=== PATIENT | female | born 1930 | race Caucasian/White ===

== ENCOUNTER 2017-05-07 14:51 | Observation (INO) | payer MEDICARE ==
[~2017-05-07] VITALS: Ht 165.1 cm; Wt 63.5 kg
[~2017-05-07 14:51] MED LIST: ACET325T9 PO; ALEN70TA5 PO; ASPI-482 PO; ASPI325T8 PO; CALC1TAB PO; CHOL100013 PO; CYAN10005 PO; FERR300L PO; LISI10TA2 PO; METO25TA4 PO; OXYC1TAB7 PO
[2017-05-07 15:28] LABS: BASO # 0.1 x10^3/uL (0.0-0.2); BASO % 1 % (0-3); EOS % 1 % (0-3); HEMATOCRIT 36.5 % (36.0-47.0); HEMOGLOBIN 11.8 g/dL (12.0-15.5); LYMPH # 1.5 x10^3/uL (1.0-4.8); LYMPH % 15 % (24-48); MEAN CORPUSCULAR HEMOGLOBIN 30 pg (25-35); MEAN CORPUSCULAR HGB CONC 32 g/dL (31-37); MEAN CORPUSCULAR VOLUME 94 fL (79-100); MONO % 11 % (0-9); NEUT % 74 % (31-73); PLATELET COUNT 289 x10^3/uL (140-400); RED BLOOD COUNT 3.89 x10^6/uL (3.50-5.40); RED CELL DISTRIBUTION WIDTH 13.7 % (11.5-14.5); WHITE BLOOD COUNT 10.6 x10^3/uL (4.0-11.0)
--- NOTE | 2017-05-07 15:29 | PHYS DOC ---
Past Medical History Past Medical History: Hypertension, Other Additional Past Medical Histor: OSTEOPOROSIS Past Surgical History: Colectomy, Hip Replacement, Hysterectomy Additional Past Surgical Histo: R hip Alcohol Use: None Drug Use: None Adult General Chief Complaint Chief Complaint: WEAKNESS/GENERALIZED HPI HPI 87-year-old female presenting to the emergency department today for generalized weakness. She presents today after being at [facility]. She recently had a right hip replacement surgery about a month ago. She reports that today this morning she started feeling generally weak. She was able to do her daily exercises however was having a hard time sitting up. She denies unilateral weakness numbness or tingling. She denies facial drooping slurring of speech or vision changes. Otherwise she denies dysuria polyuria cough hematuria hematochezia melena. Review of systems is negative for fevers chills abdominal pain nausea or vomiting. All other review of systems is negative unless otherwise noted in history of present illness. ED course: 87-year-old female presenting to the emergency department today with generalized weakness. Triage vital signs show her to have hypertension. Otherwise she is afebrile saturating well on room air. Pertinent physical examination findings show the patient to have a normal neurologic exam with this symmetric facial smile and equal round reactive pupils. Otherwise the lungs are clear to auscultation without any other abnormalities. Labs were obtained. Along with chest x-ray and urine. EKG and head ct obtained as well. EKG shows sinus rhythm with regular rate. Normal intervals. leftward axis. ST segments are congruent. Not suggestive of ACS. Reviewed by myself. Chest x-ray reviewed by myself shows no obvious infiltrate or pneumothorax present. No obvious acute cardiopulmonary process present. Otherwise blood work unremarkable other than a mildly elevated proBNP. The patient is saturating well on room air and chest x-ray is without evidence of fluid overload/ pulmonary edema. Unfortunately the patient is extremely weak and will likely need to be admitted the hospital for probable occupational and physical therapy further monitoring workup and care. I discussed the case with Dr. Ervin or hospitalists who agreed to take over care. The patient was then admitted. Review of Systems Review of Systems SEE ABOVE. Allergies Allergies Allergies Coded Allergies Type Severity Reaction Last Updated Verified No Known Drug Allergies 05/07/17 No SEE ABOVE Physical Exam Physical Exam SEE ABOVE Constitutional: Well developed, well nourished, no acute distress, non-toxic appearance. [] HENT: Normocephalic, atraumatic, bilateral external ears normal, oropharynx moist, no oral exudates, nose normal. [] Eyes: PERRLA, EOMI, conjunctiva normal, no discharge. [] Neck: Normal range of motion, no tenderness, supple, no stridor. [] Cardiovascular:Heart rate regular rhythm, no murmur [] Lungs & Thorax: Bilateral breath sounds clear to auscultation [] Abdomen: Bowel sounds normal, soft, no tenderness, no masses, no pulsatile masses. [] Skin: Warm, dry, no erythema, no rash. [] Back: No tenderness, no CVA tenderness. [] Extremities: No tenderness, no cyanosis, no clubbing, ROM intact, no edema. [] Neurologic: Alert and oriented X 3, normal motor function, normal sensory function, no focal deficits noted. [] Psychologic: Affect normal, judgement normal, mood normal. [] Current Patient Data Vital Signs Vital Signs Date Time Temp Pulse Resp B/P (MAP) Pulse Ox O2 Delivery O2 Flow Rate FiO2 05/07/17 16:00 81 21 159/77 (104) 98 Room Air 05/07/17 14:56 98.5 98.5 Lab Values Laboratory Tests Test 05/07/17 15:10 05/07/17 15:20 05/07/17 15:45 White Blood Count 10.6 x10^3/uL (4.0-11.0) Red Blood Count 3.89 x10^6/uL (3.50-5.40) Hemoglobin 11.8 g/dL (12.0-15.5) L Hematocrit 36.5 % (36.0-47.0) Mean Corpuscular Volume 94 fL (79-100) Mean Corpuscular Hemoglobin 30 pg (25-35) Mean Corpuscular Hemoglobin Concent 32 g/dL (31-37) Red Cell Distribution Width 13.7 % (11.5-14.5) Platelet Count 289 x10^3/uL (140-400) Neutrophils (%) (Auto) 74 % (31-73) H Lymphocytes (%) (Auto) 15 % (24-48) L Monocytes (%) (Auto) 11 % (0-9) H Eosinophils (%) (Auto) 1 % (0-3) Basophils (%) (Auto) 1 % (0-3) Neutrophils # (Auto) 7.9 x10^3uL (1.8-7.7) H Lymphocytes # (Auto) 1.5 x10^3/uL (1.0-4.8) Monocytes # (Auto) 1.1 x10^3/uL (0.0-1.1) Eosinophils # (Auto) 0.1 x10^3/uL (0.0-0.7) Basophils # (Auto) 0.1 x10^3/uL (0.0-0.2) Sodium Level 139 mmol/L (136-145) Potassium Level 3.9 mmol/L (3.5-5.1) Chloride Level 103 mmol/L (98-107) Carbon Dioxide Level 29 mmol/L (21-32) Anion Gap 7 (6-14) Blood Urea Nitrogen 12 mg/dL (7-20) Creatinine 0.6 mg/dL (0.6-1.0) Estimated GFR (Cockcroft-Gault) 94.1 Glucose Level 135 mg/dL (70-99) H Calcium Level 9.0 mg/dL (8.5-10.1) Total Bilirubin 0.8 mg/dL (0.2-1.0) Direct Bilirubin 0.2 mg/dL (0.0-0.2) Aspartate Amino Transferase (AST) 20 U/L (15-37) Alanine Aminotransferase (ALT) 14 U/L (14-59) Alkaline Phosphatase 114 U/L (46-116) Troponin I Quantitative < 0.017 ng/mL (0.000-0.055) WR-Wnr-J-Type Natriuretic Peptide 1121 pg/mL (0-449) H Total Protein 6.1 g/dL (6.4-8.2) L Albumin 2.6 g/dL (3.4-5.0) L Lipase 145 U/L (73-393) Urine Collection Type U cath Urine Color Yellow Urine Clarity Clear Urine pH 6.0 Urine Specific [place] 1.020 Urine Protein Negative mg/dL (NEG-TRACE) Urine Glucose (UA) Negative mg/dL (NEG) Urine Ketones (Stick) Negative mg/dL (NEG) Urine Blood Negative (NEG) Urine Nitrite Negative (NEG) Urine Bilirubin Negative (NEG) Urine Urobilinogen Dipstick 0.2 mg/dL (0.2 mg/dL) Urine Leukocyte Esterase Moderate (NEG) Urine RBC 0 /HPF (0-2) Urine WBC >40 /HPF (0-4) Urine Squamous Epithelial Cells Few /LPF Urine Transitional Epithelial Cells Few /LPF Urine Bacteria 0 /HPF (0-FEW) Urine Mucus Marked /LPF Lactic Acid Level 1.0 mmol/L (0.4-2.0) Laboratory Tests 05/07/17 15:10 Laboratory Tests 05/07/17 15:10 EKG EKG [] Radiology/Procedures Radiology/Procedures [] Course & Med Decision Making Course & Med Decision Making Pertinent Labs and Imaging studies reviewed. (See chart for details) [] Dragon Disclaimer Dragon Disclaimer This electronic medical record was generated, in whole or in part, using a voice recognition dictation system. Departure Departure Impression: Primary Impression: Generalized weakness Additional Impression: Failure to thrive Disposition: ADMITTED INPATIENT Admitting Physician: Marilu Ervin Condition: STABLE Referrals: AVELINO MARCUS MD (PCP) Patient Instructions: Weakness, [id number] Problem Qualifiers DELON JOHNSON MD May 07, 2017 15:29
--- NOTE | 2017-05-07 15:31 | RAD ---
Portable chest, 05/07/2017: History: Weakness Comparison is made to a study from 04/03/2017. The heart size and pulmonary vascularity are normal. There is calcific plaquing and tortuosity of the thoracic aorta. Calcified granulomata are present in the right base. No acute infiltrate is seen. Blunting of the left lateral costophrenic angle is probably due to scarring. A small amount of pleural fluid cannot be excluded. No right-sided pleural fluid is evident. The bony structures are demineralized. IMPRESSION: No acute cardiopulmonary abnormality is detected.
[2017-05-07 15:39] LABS: BILIRUBIN,URINE NEGATIVE (NEG); GLUCOSE,URINE NEGATIVE (NEG); NITRITE,URINE NEGATIVE (NEG); PROTEIN,URINE NEGATIVE (NEG-TRACE); UROBILINOGEN,URINE 0.2 mg/dL (0.2 mg/dL)
[2017-05-07 15:43] LABS: CREATININE 0.6 mg/dL (0.6-1.0); GFR 94.1; POTASSIUM 3.9 mmol/L (3.5-5.1)
[2017-05-07 15:49] LABS: ALBUMIN 2.6 g/dL (3.4-5.0); DIRECT BILIRUBIN 0.2 mg/dL (0.0-0.2); TOTAL BILIRUBIN 0.8 mg/dL (0.2-1.0); TOTAL PROTEIN 6.1 g/dL (6.4-8.2)
[2017-05-07 15:59] LABS: BACTERIA,URINE 0 /HPF (0-FEW); RBC,URINE 0 /HPF (0-2); SQUAMOUS EPITHELIAL CELL,UR FEW /LPF; WBC,URINE >40 /HPF (0-4)
--- NOTE | 2017-05-07 16:26 | RAD ---
CT of the head without contrast, 05/07/2017: History: Weakness, fall Comparison is made to a study from 04/05/2017. There is moderate cerebral atrophy and mild cerebellar atrophy. The ventricles are mildly prominent on a compensatory basis. There is no shift of the midline structures. There is no evidence of acute intracranial hemorrhage or mass effect. There are mild unchanged bilateral deep white matter lucencies compatible with chronic ischemic change. IMPRESSION: 1. Chronic changes as described 2. No acute intracranial abnormality is detected. PQRS Compliance Statement: One or more of the following individualized dose reduction techniques were utilized for this examination: 1. Automated exposure control 2. Adjustment of the mA and/or kV according to patient size 3. Use of iterative reconstruction technique
[2017-05-07 19:00] VITALS: BP 130/58
[2017-05-07] MEDS ORDERED: MORPHINE SULFATE 2 MG/ML DISP.SYRIN. IV PRN (19:15)
[2017-05-07] MEDS ORDERED: ONDANSETRON PF 4 MG/2 ML VIAL. IV PRN (19:15)
--- NOTE | 2017-05-07 19:20 | EKG ---
[facility] [address] [place] [address] Test Date: 2017-05-07 Test Time: 15:21:08 Pat Name: GRAEME RODRÍGUEZ Department: Room: [facility] Gender: F [employer] Supervisor: : [id number] Requested By: DELON JOHNSON Order Number: [id number] Reading MD: Po Causey Measurements Intervals [place] Rate: 84 P: -16 WI: 196 QRS: -15 QRSD: 78 T: 18 QT: 348 QTc: 414 Interpretive Statements SINUS RHYTHM LEFTWARD AXIS QRS(T) CONTOUR ABNORMALITY CONSIDER ANTEROSEPTAL INFARCT POSSIBLY ABNORMAL ECG Electronically Signed On 05-09-2017 15:04:47 CDT by Po Causey
[2017-05-07] MEDS ORDERED: ASPI-482 PO (19:36)
[2017-05-07 23:00] VITALS: BP 134/51
--- NOTE | 2017-05-08 00:01 | HP ---
ADMIT DATE: 05/07/2017 CHIEF COMPLAINT: Weakness. HISTORY OF PRESENT ILLNESS: The patient is a pleasant elderly female, who presents to the ER with weakness. She basically just cannot walk. She has been worsening over several days. We suspect she has some underlying dementia. I have discussed the case with the ER physician. It is possible the patient has early failure to thrive. We are going to admit the patient and consult socially responsible investment adviser. PAST MEDICAL HISTORY: Osteoporosis, hypertension, hip replacement and hysterectomy. ALLERGIES: None. FAMILY HISTORY: Diabetes. SOCIAL HISTORY: She does not drink, smoke or take drugs. MEDICATIONS: Reviewed, please refer to the MRAD. REVIEW OF SYSTEMS: Unobtainable, the patient is too weak and confused. PHYSICAL EXAMINATION: VITAL SIGNS: Temperature afebrile, pulse 92, respirations 18, blood pressure 130/58. GENERAL: She is sleeping, does not really want to talk. HEART: Distant S1, S2. LUNGS: Clear. ABDOMEN: Soft, positive bowel sounds. EXTREMITIES: No edema. SKIN: No rashes. ENDOCRINE: No thyromegaly. LYMPHATICS: No cervical nodes. HEMATOPOIETIC: No bruising. LABORATORY DATA: White count 10, hemoglobin 12, platelets 289. Electrolytes are normal. BNP little high at 1121. ASSESSMENT AND PLAN: Weakness with probable early failure to thrive. The patient has been admitted. We will give her IV fluids. Consult socially responsible investment adviser try to resume her home meds. Suspect she might need [facility] care and/or halfway. YON GUAN DO DR: JUAN MANUEL/so JOB#: [id number] / [id number]
[2017-05-08 03:00] VITALS: BP 102/41
[2017-05-08 04:35] LABS: BASO # 0.1 x10^3/uL (0.0-0.2); BASO % 1 % (0-3); EOS % 2 % (0-3); HEMATOCRIT 32.3 % (36.0-47.0); HEMOGLOBIN 10.6 g/dL (12.0-15.5); LYMPH # 1.7 x10^3/uL (1.0-4.8); LYMPH % 27 % (24-48); MEAN CORPUSCULAR HEMOGLOBIN 31 pg (25-35); MEAN CORPUSCULAR HGB CONC 33 g/dL (31-37); MEAN CORPUSCULAR VOLUME 93 fL (79-100); MONO % 13 % (0-9); NEUT % 57 % (31-73); PLATELET COUNT 262 x10^3/uL (140-400); RED BLOOD COUNT 3.47 x10^6/uL (3.50-5.40); RED CELL DISTRIBUTION WIDTH 13.6 % (11.5-14.5); WHITE BLOOD COUNT 6.3 x10^3/uL (4.0-11.0)
[2017-05-08 05:01] LABS: CREATININE 0.6 mg/dL (0.6-1.0); GFR 94.1; POTASSIUM 3.9 mmol/L (3.5-5.1)
[2017-05-08 07:05] VITALS: BP 131/47
[2017-05-08 11:19] VITALS: BP 158/76
[2017-05-08] MEDS: IV NORMAL SALINE 1000ML BAG 1,000 ML IV SCH (12:30)
--- NOTE | 2017-05-08 13:24 | PDOC ---
PROGRESS NOTES Chief Complaint Chief Complaint CC weakness Osteoporosis HTN History of Present Illness History of Present Illness 87 y/o F with CC of weakness patient was found laying supine lungs clear, tachycardic pt had noticeable dementia and dysphagia but was responsive will start on antidepressant (Prozac 20 mg) family requested consult with social media assistant Vitals Vitals Vital Signs Date Time Temp Pulse Resp B/P (MAP) Pulse Ox O2 Delivery O2 Flow Rate FiO2 05/08/17 11:19 98.1 97 18 158/76 (103) 97 Room Air 98.1 Physical Exam General: Alert, Cooperative, Other (patient was demented, dysphagic) Heart: Regular rate, No murmurs Lungs: Clear, Other Abdomen: Normal bowel sounds, Soft, No tenderness Extremities: No clubbing, No cyanosis Skin: No rashes, No significant lesion Labs LABS Laboratory Tests Test 05/07/17 15:10 05/07/17 15:20 05/07/17 15:45 05/08/17 03:30 White Blood Count 10.6 x10^3/uL (4.0-11.0) 6.3 x10^3/uL (4.0-11.0) Red Blood Count 3.89 x10^6/uL (3.50-5.40) 3.47 x10^6/uL (3.50-5.40) Hemoglobin 11.8 g/dL (12.0-15.5) 10.6 g/dL (12.0-15.5) Hematocrit 36.5 % (36.0-47.0) 32.3 % (36.0-47.0) Mean Corpuscular Volume 94 fL (79-100) 93 fL (79-100) Mean Corpuscular Hemoglobin 30 pg (25-35) 31 pg (25-35) Mean Corpuscular Hemoglobin Concent 32 g/dL (31-37) 33 g/dL (31-37) Red Cell Distribution Width 13.7 % (11.5-14.5) 13.6 % (11.5-14.5) Platelet Count 289 x10^3/uL (140-400) 262 x10^3/uL (140-400) Neutrophils (%) (Auto) 74 % (31-73) 57 % (31-73) Lymphocytes (%) (Auto) 15 % (24-48) 27 % (24-48) Monocytes (%) (Auto) 11 % (0-9) 13 % (0-9) Eosinophils (%) (Auto) 1 % (0-3) 2 % (0-3) Basophils (%) (Auto) 1 % (0-3) 1 % (0-3) Neutrophils # (Auto) 7.9 x10^3uL (1.8-7.7) 3.6 x10^3uL (1.8-7.7) Lymphocytes # (Auto) 1.5 x10^3/uL (1.0-4.8) 1.7 x10^3/uL (1.0-4.8) Monocytes # (Auto) 1.1 x10^3/uL (0.0-1.1) 0.8 x10^3/uL (0.0-1.1) Eosinophils # (Auto) 0.1 x10^3/uL (0.0-0.7) 0.1 x10^3/uL (0.0-0.7) Basophils # (Auto) 0.1 x10^3/uL (0.0-0.2) 0.1 x10^3/uL (0.0-0.2) Sodium Level 139 mmol/L (136-145) 143 mmol/L (136-145) Potassium Level 3.9 mmol/L (3.5-5.1) 3.9 mmol/L (3.5-5.1) Chloride Level 103 mmol/L (98-107) 109 mmol/L (98-107) Carbon Dioxide Level 29 mmol/L (21-32) 30 mmol/L (21-32) Anion Gap 7 (6-14) 4 (6-14) Blood Urea Nitrogen 12 mg/dL (7-20) 8 mg/dL (7-20) Creatinine 0.6 mg/dL (0.6-1.0) 0.6 mg/dL (0.6-1.0) Estimated GFR (Cockcroft-Gault) 94.1 94.1 Glucose Level 135 mg/dL (70-99) 87 mg/dL (70-99) Calcium Level 9.0 mg/dL (8.5-10.1) 8.0 mg/dL (8.5-10.1) Total Bilirubin 0.8 mg/dL (0.2-1.0) Direct Bilirubin 0.2 mg/dL (0.0-0.2) Aspartate Amino Transf (AST/SGOT) 20 U/L (15-37) Alanine Aminotransferase (ALT/SGPT) 14 U/L (14-59) Alkaline Phosphatase 114 U/L (46-116) Troponin I Quantitative < 0.017 ng/mL (0.000-0.055) GJ-Jsl-G-Type Natriuretic Peptide 1121 pg/mL (0-449) Total Protein 6.1 g/dL (6.4-8.2) Albumin 2.6 g/dL (3.4-5.0) Lipase 145 U/L (73-393) Urine Collection Type U cath Urine Color Yellow Urine Clarity Clear Urine pH 6.0 Urine Specific [place] 1.020 Urine Protein Negative mg/dL (NEG-TRACE) Urine Glucose (UA) Negative mg/dL (NEG) Urine Ketones (Stick) Negative mg/dL (NEG) Urine Blood Negative (NEG) Urine Nitrite Negative (NEG) Urine Bilirubin Negative (NEG) Urine Urobilinogen Dipstick 0.2 mg/dL (0.2 mg/dL) Urine Leukocyte Esterase Moderate (NEG) Urine RBC 0 /HPF (0-2) Urine WBC >40 /HPF (0-4) Urine Squamous Epithelial Cells Few /LPF Urine Transitional Epithelial Cells Few /LPF Urine Bacteria 0 /HPF (0-FEW) Urine Mucus Marked /LPF Lactic Acid Level 1.0 mmol/L (0.4-2.0) Review of Systems Review of Systems weakness dysphagia Assessment and Plan Assessmemt and Plan Problems Medical Problems: (1) Failure to thrive Status: Acute (2) Generalized weakness Status: Acute PAST MEDICAL HISTORY: Osteoporosis, hypertension, hip replacement and hysterectomy. PLAN -discussed rehab status with family (referral to social media assistant) -IV fluids (NS 75/hr) -PT -daily labs -continue home meds -await Neurology consult -start Prozac 20 mg Problems: Comment Review of Relevant I have reviewed the following items scar (where applicable) has been applied. Labs Laboratory Tests Test 05/07/17 15:10 05/07/17 15:20 05/07/17 15:45 05/08/17 03:30 White Blood Count 10.6 x10^3/uL (4.0-11.0) 6.3 x10^3/uL (4.0-11.0) Red Blood Count 3.89 x10^6/uL (3.50-5.40) 3.47 x10^6/uL (3.50-5.40) Hemoglobin 11.8 g/dL (12.0-15.5) 10.6 g/dL (12.0-15.5) Hematocrit 36.5 % (36.0-47.0) 32.3 % (36.0-47.0) Mean Corpuscular Volume 94 fL (79-100) 93 fL (79-100) Mean Corpuscular Hemoglobin 30 pg (25-35) 31 pg (25-35) Mean Corpuscular Hemoglobin Concent 32 g/dL (31-37) 33 g/dL (31-37) Red Cell Distribution Width 13.7 % (11.5-14.5) 13.6 % (11.5-14.5) Platelet Count 289 x10^3/uL (140-400) 262 x10^3/uL (140-400) Neutrophils (%) (Auto) 74 % (31-73) 57 % (31-73) Lymphocytes (%) (Auto) 15 % (24-48) 27 % (24-48) Monocytes (%) (Auto) 11 % (0-9) 13 % (0-9) Eosinophils (%) (Auto) 1 % (0-3) 2 % (0-3) Basophils (%) (Auto) 1 % (0-3) 1 % (0-3) Neutrophils # (Auto) 7.9 x10^3uL (1.8-7.7) 3.6 x10^3uL (1.8-7.7) Lymphocytes # (Auto) 1.5 x10^3/uL (1.0-4.8) 1.7 x10^3/uL (1.0-4.8) Monocytes # (Auto) 1.1 x10^3/uL (0.0-1.1) 0.8 x10^3/uL (0.0-1.1) Eosinophils # (Auto) 0.1 x10^3/uL (0.0-0.7) 0.1 x10^3/uL (0.0-0.7) Basophils # (Auto) 0.1 x10^3/uL (0.0-0.2) 0.1 x10^3/uL (0.0-0.2) Sodium Level 139 mmol/L (136-145) 143 mmol/L (136-145) Potassium Level 3.9 mmol/L (3.5-5.1) 3.9 mmol/L (3.5-5.1) Chloride Level 103 mmol/L (98-107) 109 mmol/L (98-107) Carbon Dioxide Level 29 mmol/L (21-32) 30 mmol/L (21-32) Anion Gap 7 (6-14) 4 (6-14) Blood Urea Nitrogen 12 mg/dL (7-20) 8 mg/dL (7-20) Creatinine 0.6 mg/dL (0.6-1.0) 0.6 mg/dL (0.6-1.0) Estimated GFR (Cockcroft-Gault) 94.1 94.1 Glucose Level 135 mg/dL (70-99) 87 mg/dL (70-99) Calcium Level 9.0 mg/dL (8.5-10.1) 8.0 mg/dL (8.5-10.1) Total Bilirubin 0.8 mg/dL (0.2-1.0) Direct Bilirubin 0.2 mg/dL (0.0-0.2) Aspartate Amino Transf (AST/SGOT) 20 U/L (15-37) Alanine Aminotransferase (ALT/SGPT) 14 U/L (14-59) Alkaline Phosphatase 114 U/L (46-116) Troponin I Quantitative < 0.017 ng/mL (0.000-0.055) MS-Mmt-O-Type Natriuretic Peptide 1121 pg/mL (0-449) Total Protein 6.1 g/dL (6.4-8.2) Albumin 2.6 g/dL (3.4-5.0) Lipase 145 U/L (73-393) Urine Collection Type U cath Urine Color Yellow Urine Clarity Clear Urine pH 6.0 Urine Specific [place] 1.020 Urine Protein Negative mg/dL (NEG-TRACE) Urine Glucose (UA) Negative mg/dL (NEG) Urine Ketones (Stick) Negative mg/dL (NEG) Urine Blood Negative (NEG) Urine Nitrite Negative (NEG) Urine Bilirubin Negative (NEG) Urine Urobilinogen Dipstick 0.2 mg/dL (0.2 mg/dL) Urine Leukocyte Esterase Moderate (NEG) Urine RBC 0 /HPF (0-2) Urine WBC >40 /HPF (0-4) Urine Squamous Epithelial Cells Few /LPF Urine Transitional Epithelial Cells Few /LPF Urine Bacteria 0 /HPF (0-FEW) Urine Mucus Marked /LPF Lactic Acid Level 1.0 mmol/L (0.4-2.0) Laboratory Tests Test 05/07/17 15:10 05/07/17 15:20 05/07/17 15:45 05/08/17 03:30 White Blood Count 10.6 x10^3/uL (4.0-11.0) 6.3 x10^3/uL (4.0-11.0) Red Blood Count 3.89 x10^6/uL (3.50-5.40) 3.47 x10^6/uL (3.50-5.40) Hemoglobin 11.8 g/dL (12.0-15.5) 10.6 g/dL (12.0-15.5) Hematocrit 36.5 % (36.0-47.0) 32.3 % (36.0-47.0) Mean Corpuscular Volume 94 fL (79-100) 93 fL (79-100) Mean Corpuscular Hemoglobin 30 pg (25-35) 31 pg (25-35) Mean Corpuscular Hemoglobin Concent 32 g/dL (31-37) 33 g/dL (31-37) Red Cell Distribution Width 13.7 % (11.5-14.5) 13.6 % (11.5-14.5) Platelet Count 289 x10^3/uL (140-400) 262 x10^3/uL (140-400) Neutrophils (%) (Auto) 74 % (31-73) 57 % (31-73) Lymphocytes (%) (Auto) 15 % (24-48) 27 % (24-48) Monocytes (%) (Auto) 11 % (0-9) 13 % (0-9) Eosinophils (%) (Auto) 1 % (0-3) 2 % (0-3) Basophils (%) (Auto) 1 % (0-3) 1 % (0-3) Neutrophils # (Auto) 7.9 x10^3uL (1.8-7.7) 3.6 x10^3uL (1.8-7.7) Lymphocytes # (Auto) 1.5 x10^3/uL (1.0-4.8) 1.7 x10^3/uL (1.0-4.8) Monocytes # (Auto) 1.1 x10^3/uL (0.0-1.1) 0.8 x10^3/uL (0.0-1.1) Eosinophils # (Auto) 0.1 x10^3/uL (0.0-0.7) 0.1 x10^3/uL (0.0-0.7) Basophils # (Auto) 0.1 x10^3/uL (0.0-0.2) 0.1 x10^3/uL (0.0-0.2) Sodium Level 139 mmol/L (136-145) 143 mmol/L (136-145) Potassium Level 3.9 mmol/L (3.5-5.1) 3.9 mmol/L (3.5-5.1) Chloride Level 103 mmol/L (98-107) 109 mmol/L (98-107) Carbon Dioxide Level 29 mmol/L (21-32) 30 mmol/L (21-32) Anion Gap 7 (6-14) 4 (6-14) Blood Urea Nitrogen 12 mg/dL (7-20) 8 mg/dL (7-20) Creatinine 0.6 mg/dL (0.6-1.0) 0.6 mg/dL (0.6-1.0) Estimated GFR (Cockcroft-Gault) 94.1 94.1 Glucose Level 135 mg/dL (70-99) 87 mg/dL (70-99) Calcium Level 9.0 mg/dL (8.5-10.1) 8.0 mg/dL (8.5-10.1) Total Bilirubin 0.8 mg/dL (0.2-1.0) Direct Bilirubin 0.2 mg/dL (0.0-0.2) Aspartate Amino Transf (AST/SGOT) 20 U/L (15-37) Alanine Aminotransferase (ALT/SGPT) 14 U/L (14-59) Alkaline Phosphatase 114 U/L (46-116) Troponin I Quantitative < 0.017 ng/mL (0.000-0.055) UH-Bde-B-Type Natriuretic Peptide 1121 pg/mL (0-449) Total Protein 6.1 g/dL (6.4-8.2) Albumin 2.6 g/dL (3.4-5.0) Lipase 145 U/L (73-393) Urine Collection Type U cath Urine Color Yellow Urine Clarity Clear Urine pH 6.0 Urine Specific [place] 1.020 Urine Protein Negative mg/dL (NEG-TRACE) Urine Glucose (UA) Negative mg/dL (NEG) Urine Ketones (Stick) Negative mg/dL (NEG) Urine Blood Negative (NEG) Urine Nitrite Negative (NEG) Urine Bilirubin Negative (NEG) Urine Urobilinogen Dipstick 0.2 mg/dL (0.2 mg/dL) Urine Leukocyte Esterase Moderate (NEG) Urine RBC 0 /HPF (0-2) Urine WBC >40 /HPF (0-4) Urine Squamous Epithelial Cells Few /LPF Urine Transitional Epithelial Cells Few /LPF Urine Bacteria 0 /HPF (0-FEW) Urine Mucus Marked /LPF Lactic Acid Level 1.0 mmol/L (0.4-2.0) Medications Current Medications Ondansetron HCl (Zofran) 4 mg PRN Q8HRS PRN IV NAUSEA/VOMITING; Start 05/07/17 at 19:15; Stop 05/08/17 at 19:14 Morphine Sulfate 2 mg PRN Q2HR PRN IV PAIN; Start 05/07/17 at 19:15; Stop 05/08 at 19:14 Sodium Chloride 1,000 ml @ 75 mls/hr [id number] IV ; Start 05/08/17 at 12:30 Active Scripts Active Aspirin 325 Mg Tablet 1 Tab PO BID after 1 month, go back to 81 mg pills Ferrous Sulfate 300 Mg/5 Ml Liquid 300 Mg PO [id number] Oxycodone-Acetaminophen 5-325 (Oxycodone Hcl/Acetaminophen) 1 Each Tablet 1 Tab PO PRN Q4HRS PRN Tylenol (Acetaminophen) 325 Mg Tablet 650 Mg PO PRN Q4HRS PRN Reported Aspir 81 (Aspirin) 81 Mg Tablet. 1 Tab PO DAILY Alendronate Sodium 70 Mg Tablet 70 Mg PO WEEKLY Vitamin B-12 (Cyanocobalamin (Vitamin B-12)) 1,000 Mcg Tablet 500 Mcg PO DAILY Vitamin D (Cholecalciferol (Vitamin D3)) 1,000 Unit Capsule 400 Unit PO DAILY Caltrate 600 + D Tablet (Calcium Carbonate/Vitamin D3) 1 Each Tablet 1 Each PO BID Metoprolol Tartrate Unknown Strength Tablet 50 Mg PO BID Lisinopril 10 Mg Tablet 10 Mg PO BID Vitals/I & O Vital Sign - Last 24 Hours 05/07/17 05/07/17 05/07/17 05/07/17 14:56 15:00 15:30 16:00 Temp 98.5 98.5 Pulse 82 79 77 81 Resp 18 18 20 21 B/P (MAP) 167/75 (105) 167/75 (105) 141/65 (90) 159/77 (104) Pulse Ox 98 98 98 98 O2 Delivery Room Air Room Air Room Air Room Air 05/07/17 05/07/17 05/07/17 05/07/17 16:30 17:00 17:30 19:00 Temp 98.2 98.2 Pulse 85 90 81 79 Resp 20 18 18 20 B/P (MAP) 166/76 (106) 166/76 (106) 145/65 (91) 130/58 (82) Pulse Ox 100 100 100 96 O2 Delivery Room Air Room Air Room Air Room Air 05/07/17 05/07/17 05/07/17 05/08/17 19:30 20:00 23:00 03:00 Temp 99.6 99.9 99.6 99.9 Pulse 65 75 Resp 18 18 B/P (MAP) 134/51 (78) 102/41 (61) Pulse Ox 94 93 O2 Delivery Room Air Room Air Room Air Room Air 05/08/17 05/08/17 05/08/17 07:05 08:00 11:19 Temp 97.6 98.1 97.6 98.1 Pulse 87 97 Resp 18 18 B/P (MAP) 131/47 (75) 158/76 (103) Pulse Ox 92 97 O2 Delivery Room Air Room Air Room Air Intake and Output 05/07/17 05/07/17 05/08/17 15:00 23:00 07:00 Intake Total 220 ml Balance 220 ml CASTLE,NIAL K III DO May 08, 2017 13:24
[2017-05-08] MEDS: FLUoxetine HCL 20 MG CAPSULE PO SCH (14:06)
[2017-05-08 15:02] VITALS: BP 118/57
[2017-05-08] MEDS ORDERED: ACETAMINOPHEN 325 MG TABLET. PO PRN (16:45)
[2017-05-08 19:00] VITALS: BP 123/60
[2017-05-08 23:00] VITALS: BP 134/58
[2017-05-09] VITALS (7 sets, daily range): BP systolic 103–148; BP diastolic 54–72
[2017-05-09] MEDS: IV NORMAL SALINE 1000ML BAG 1,000 ML IV SCH (02:24)
--- NOTE | 2017-05-09 07:03 | CONS ---
DATE OF CONSULTATION: 05/08/2017 REFERRING PHYSICIAN: Dr. Marilu Ervin. REASON FOR CONSULTATION: Dementia, generalized weakness with failure to thrive and right foot drop. HISTORY OF PRESENT ILLNESS: The patient is an 87-year-old woman who fell fracturing her hip on 04/04/2017. Prior to this, she had resided in an assisted living facility. She had a subcapital fracture of the neck of the right femur. Following surgical intervention, she had a right foot drop, for which she was wearing a right ankle brace. She has been in rehabilitation since that time and has been getting progressively weaker and had very poor oral intake. She was seen by Neurology after the surgery because she became encephalopathic. It was felt she may have an underlying dementia with a superimposed encephalopathy. She underwent investigation for stroke at that time and was shown to have a negative MRI, but extensive chronic small vessel disease. She presented to [facility] yesterday. The reason for the admission was inability to walk any longer. She does not recall specific detail such as the foot drop. She does not recall that the foot drop occurred as a consequence of the surgery. She has been attempting to do daily exercise at the rehab facility but is having a hard time even sitting up. She is not aware of any changes in mood or behavior. She is aware that her oral intake has been poor, but it is really not due to nausea or vomiting. PAST MEDICAL HISTORY: 1. Hypertension. 2. Osteoporosis. 3. Colectomy. 4. Right hip surgery after a fracture. 5. Hysterectomy. 6. Right foot drop. 7. Cognitive loss, likely dementia. 8. History of encephalopathy following surgery. ALLERGIES: No known allergies to drugs. MEDICATIONS PRIOR TO ADMISSION: Tylenol as needed, Fosamax 70 mg weekly, aspirin 81 mg, calcium carbonate and vitamin D3, vitamin B12, iron sulfate, lisinopril 10 mg twice per day, metoprolol 50 mg twice per day, and oxycodone/acetaminophen every 4 hours as needed. FAMILY HISTORY: Diabetes. SOCIAL HISTORY: She does not smoke tobacco, drink alcohol, or use recreational drugs. REVIEW OF SYSTEMS: She does not have any headache. She is not aware of any change in vision or hearing. She is not aware of any cognitive loss. She has not had trouble with swallowing. She does not appear to have shortness of breath, have chest or abdominal pain. She does not specifically complain of bone or joint pain. There has been no fever or rash. She has chronic constipation. No genitourinary complaint. She does not complain of easy bruising or bleeding. She denies any psychiatric concerns. She does occasionally have swelling in her feet and legs. PHYSICAL EXAMINATION: VITAL SIGNS: The blood pressure was 118/57, pulse 77, respirations 19, temperature 98.3 degrees Fahrenheit, and oximetry was 94% on room air. Her weight was 140 pounds with a height of 65 inches and a calculated body mass index of 23.3. GENERAL: She was alert, awake, and cooperative. Speech was fluent and clear. She had a poor fund of recent and remote knowledge. Attention and concentration was only fair. She was oriented to month and year, but initially stated we were at where she lived, which was [place]. When I asked her again later in the exam, she did say she was at [facility] and misunderstood the question previously. She was able to spell the word "world" forward and backwards. She appeared well groomed and well nourished. NEUROLOGIC: Examination of the cranial nerves revealed visual camp were full to confrontation. Extraocular movements were intact. The eyes were conjugate. Pursuit movements were smooth and saccadic eye movements were without dysmetria. Pupils were 2-3 mm. Funduscopic exam did not reveal papilledema, exudate, or hemorrhage. Facial sensation was intact. The muscles of mastication and facial expression were powerful symmetrically. Hearing was intact to finger rub. The palate arches symmetrically and the tongue was midline with full range of motion. Sternocleidomastoid and trapezius were powerful. Muscle bulk and tone was normal. There was no spasticity or rigidity. In the upper extremities, I noticed a resting tremor, which was a low-amplitude, medium-frequency, regular tremor in the right hand. She did not have any rigidity even with augmentation maneuvers. Movements were not slow. Power was fairly full in the arms, but was markedly diminished in both legs with the right leg worse than the left. She also had a foot drop on the left foot with weakness now only with dorsiflexion, but plantar flexion as well. Power in the left leg was 4/5. She had difficulty raising. She was initially able to raise her left leg off the bed, but offered little resistance. With repeated testing, she fatigued quickly. Reflexes were 2/4 in the upper extremities, 1/4 at the knees, but absent at the ankles. The toes were not upgoing. Coordination testing with [id number], fine motor and rapid movements were fairly well performed. She had a great deal of difficulty grasping the concept of rapid alternating movement despite repeated demonstrations. She was too weak to do [id number]. Sensory exam was intact to pain, light touch, proprioception, graphesthesia, and cold, thermal, and vibration. There was no extinction to double simultaneous stimulation. Gait was not testable. NECK: Auscultation of the carotid arteries did not reveal a bruit. HEART: Rhythm was regular without a murmur. EXTREMITIES: Peripheral pulses were symmetric. There was no edema or cyanosis of the extremities. LABORATORY DATA: CBC revealed a normal white blood cell count with low hemoglobin at 10.6, hematocrit at 32.3, and normal platelet count of 262. Sedimentation rate on 04/06/2017 was elevated slightly at 41. Chemistries revealed normal sodium and potassium. Chloride was elevated at 109. BUN and creatinine were normal. The GFR calculated at 94.1. Glucose and lactic acid were normal. Calcium was low at 8. Liver enzymes were not elevated. Troponin was not elevated. BNP was elevated to 1121. Albumin was low at 2.6 and total protein at 6.1. B12 was 294 from 04/06/2017. Folate and TSH from 04/06/2017 were normal. Vitamin D level was low at 25.9 on 04/03/2017. Urinalysis from yesterday revealed moderate leukocyte esterase, greater than 40 white blood cells, only a few squamous and transitional epithelial cells. MRSA screen from the nasal on 04/03/2017 was negative. MRI of the brain was performed on 04/05/2017 and did not reveal evidence for an acute event at that time, but she had extensive chronic small vessel disease. She has undergone a CT scan of her head yesterday, which also did not reveal an acute intracranial process. IMPRESSION: The patient is a pleasant 87-year-old woman who has had failure to thrive in the correction unit. She fell fracturing her right hip, and as a consequence of surgery, she also developed a right foot drop with weakness to dorsi and plantar flexion. She has not been able to walk. Her oral intake has been poor, the cause of which is not clear, but could potentially be the constipation. She states she has been chronically constipated. She does not exactly have weakness in the upper extremities, so it seems like a process such as myasthenia gravis would be less likely. She does not have spasticity or abnormal reflexes in her feet, suggesting a myelopathy. She may have a lumbar radiculopathy potentially. She likely does have an underlying dementia and easily becomes encephalopathic with the strain of surgery. She has undergone investigation last month for a deficiency state, which was negative. RECOMMENDATIONS: She should focus on nutrition to take in enough protein and calories to maintain herself. When the MRI scanner is up and working, we could consider an MRI of the lumbar spine if acceptable from the surgical perspective. I appreciate being involved in her care. TAMAR MARQUEZ MD DR: KORY/so JOB#: [id number] / [id number] Dr. ROGE English NIAL DO CRISTIANO, PETER MD SHI, Dr.
[2017-05-09] MEDS ORDERED: ACETAMINOPHEN 325 MG TABLET. PO PRN (07:15)
[2017-05-09] MEDS ORDERED: oxyCODONE/APAP 5/325 1 TAB TABLET PO PRN (07:15)
[2017-05-09] MEDS ORDERED: NON FORMULARY ITEM (Alendronate Sodium 70 MG) PO SCH (09:00)
[2017-05-09] MEDS: FERROUS SULFATE ORAL 300 MG/5 ML SOLUTION. PO SCH (09:12)
[2017-05-09] MEDS: METOPROLOL TART IMMED RELEASE 50 MG TABLET. PO SCH ×2 (09:14→20:19)
[2017-05-09] MEDS: CALCIUM CARB/VIT D3 500/200 TABLET. PO SCH ×2 (09:15→17:22)
[2017-05-09] MEDS: FLUoxetine HCL 20 MG CAPSULE PO SCH (09:15)
[2017-05-09] MEDS: CYANOCOBALAMIN (VITAMIN B-12) 1,000 MCG TABLET. PO SCH (09:16)
[2017-05-09] MEDS: ASPIRIN ENTERIC COATED 81 MG TABLET.DR. PO SCH (09:16)
[2017-05-09] MEDS: CHOLECALCIFEROL (VITAMIN D3) 1,000 UNIT TABLET PO SCH (09:16)
[2017-05-09] MEDS: LISINOPRIL 10 MG TABLET PO SCH ×2 (09:16→20:18)
--- NOTE | 2017-05-09 14:16 | PDOC ---
PROGRESS NOTES Chief Complaint Chief Complaint CC weakness/confusion Osteoporosis HTN History of Present Illness History of Present Illness 87 y/o F with CC of weakness/confusion patient was found laying supine and in good spirits, smiling lungs clear pt had noticeable dementia and dysphagia but was responsive Speech therapist was present awaiting family requested consult with psychiatric social worker Vitals Vitals Vital Signs Date Time Temp Pulse Resp B/P (MAP) Pulse Ox O2 Delivery O2 Flow Rate FiO2 05/09/17 11:18 98.2 84 17 125/65 (85) 96 Room Air 98.2 Physical Exam General: Alert, Cooperative, Other (pt has dementia) Heart: Regular rate, No murmurs Lungs: Clear, Other Abdomen: Normal bowel sounds, Soft, No tenderness Extremities: No clubbing, No cyanosis Skin: No rashes, No significant lesion Review of Systems Review of Systems pt complained of weakness pt complained of nausea Assessment and Plan Assessmemt and Plan Problems Medical Problems: (1) Failure to thrive Status: Acute (2) Generalized weakness Status: Acute PLAN -watch lactic acid levels (recheck labs) -await MRI results -await SS consult -continue home meds -PTOT as tolerated Problems: Comment Review of Relevant I have reviewed the following items scar (where applicable) has been applied. Labs Laboratory Tests Test 05/07/17 15:10 05/07/17 15:20 05/07/17 15:45 05/07/17 19:30 White Blood Count 10.6 x10^3/uL (4.0-11.0) Red Blood Count 3.89 x10^6/uL (3.50-5.40) Hemoglobin 11.8 g/dL (12.0-15.5) Hematocrit 36.5 % (36.0-47.0) Mean Corpuscular Volume 94 fL (79-100) Mean Corpuscular Hemoglobin 30 pg (25-35) Mean Corpuscular Hemoglobin Concent 32 g/dL (31-37) Red Cell Distribution Width 13.7 % (11.5-14.5) Platelet Count 289 x10^3/uL (140-400) Neutrophils (%) (Auto) 74 % (31-73) Lymphocytes (%) (Auto) 15 % (24-48) Monocytes (%) (Auto) 11 % (0-9) Eosinophils (%) (Auto) 1 % (0-3) Basophils (%) (Auto) 1 % (0-3) Neutrophils # (Auto) 7.9 x10^3uL (1.8-7.7) Lymphocytes # (Auto) 1.5 x10^3/uL (1.0-4.8) Monocytes # (Auto) 1.1 x10^3/uL (0.0-1.1) Eosinophils # (Auto) 0.1 x10^3/uL (0.0-0.7) Basophils # (Auto) 0.1 x10^3/uL (0.0-0.2) Sodium Level 139 mmol/L (136-145) Potassium Level 3.9 mmol/L (3.5-5.1) Chloride Level 103 mmol/L (98-107) Carbon Dioxide Level 29 mmol/L (21-32) Anion Gap 7 (6-14) Blood Urea Nitrogen 12 mg/dL (7-20) Creatinine 0.6 mg/dL (0.6-1.0) Estimated GFR (Cockcroft-Gault) 94.1 Glucose Level 135 mg/dL (70-99) Calcium Level 9.0 mg/dL (8.5-10.1) Total Bilirubin 0.8 mg/dL (0.2-1.0) Direct Bilirubin 0.2 mg/dL (0.0-0.2) Aspartate Amino Transf (AST/SGOT) 20 U/L (15-37) Alanine Aminotransferase (ALT/SGPT) 14 U/L (14-59) Alkaline Phosphatase 114 U/L (46-116) Troponin I Quantitative < 0.017 ng/mL (0.000-0.055) FJ-Fxa-[id number]-Type Natriuretic Peptide 1121 pg/mL (0-449) Total Protein 6.1 g/dL (6.4-8.2) Albumin 2.6 g/dL (3.4-5.0) Lipase 145 U/L (73-393) Urine Collection Type U cath Urine Color Yellow Urine Clarity Clear Urine pH 6.0 Urine Specific Swiss 1.020 Urine Protein Negative mg/dL (NEG-TRACE) Urine Glucose (UA) Negative mg/dL (NEG) Urine Ketones (Stick) Negative mg/dL (NEG) Urine Blood Negative (NEG) Urine Nitrite Negative (NEG) Urine Bilirubin Negative (NEG) Urine Urobilinogen Dipstick 0.2 mg/dL (0.2 mg/dL) Urine Leukocyte Esterase Moderate (NEG) Urine RBC 0 /HPF (0-2) Urine WBC >40 /HPF (0-4) Urine Squamous Epithelial Cells Few /LPF Urine Transitional Epithelial Cells Few /LPF Urine Bacteria 0 /HPF (0-FEW) Urine Mucus Marked /LPF Lactic Acid Level 1.0 mmol/L (0.4-2.0) Nasal Screen MRSA (PCR) Negative (Negative) Test 05/08/17 03:30 White Blood Count 6.3 x10^3/uL (4.0-11.0) Red Blood Count 3.47 x10^6/uL (3.50-5.40) Hemoglobin 10.6 g/dL (12.0-15.5) Hematocrit 32.3 % (36.0-47.0) Mean Corpuscular Volume 93 fL (79-100) Mean Corpuscular Hemoglobin 31 pg (25-35) Mean Corpuscular Hemoglobin Concent 33 g/dL (31-37) Red Cell Distribution Width 13.6 % (11.5-14.5) Platelet Count 262 x10^3/uL (140-400) Neutrophils (%) (Auto) 57 % (31-73) Lymphocytes (%) (Auto) 27 % (24-48) Monocytes (%) (Auto) 13 % (0-9) Eosinophils (%) (Auto) 2 % (0-3) Basophils (%) (Auto) 1 % (0-3) Neutrophils # (Auto) 3.6 x10^3uL (1.8-7.7) Lymphocytes # (Auto) 1.7 x10^3/uL (1.0-4.8) Monocytes # (Auto) 0.8 x10^3/uL (0.0-1.1) Eosinophils # (Auto) 0.1 x10^3/uL (0.0-0.7) Basophils # (Auto) 0.1 x10^3/uL (0.0-0.2) Sodium Level 143 mmol/L (136-145) Potassium Level 3.9 mmol/L (3.5-5.1) Chloride Level 109 mmol/L (98-107) Carbon Dioxide Level 30 mmol/L (21-32) Anion Gap 4 (6-14) Blood Urea Nitrogen 8 mg/dL (7-20) Creatinine 0.6 mg/dL (0.6-1.0) Estimated GFR (Cockcroft-Gault) 94.1 Glucose Level 87 mg/dL (70-99) Calcium Level 8.0 mg/dL (8.5-10.1) Microbiology 05/07/17 Urine Culture - Final, Complete 05/07/17 Urine Culture Result 1 (LANNY) - Final, Complete Medications Current Medications Ondansetron HCl (Zofran) 4 mg PRN Q8HRS PRN IV NAUSEA/VOMITING; Start 05/07/17 at 19:15; Stop 05/08/17 at 19:14; Status DC Morphine Sulfate 2 mg PRN Q2HR PRN IV PAIN; Start 05/07/17 at 19:15; Stop 05/08 at 19:14; Status DC Sodium Chloride 1,000 ml @ 75 mls/hr [id number] IV Last administered on 02:24; Start 05/08/17 at 12:30 Fluoxetine HCl (PROzac) 20 mg DAILY PO Last administered on 05/09/17 09:15; Start 05/08/17 at 14:00 Acetaminophen (Tylenol) 650 mg PRN Q6HRS PRN PO PAIN Last administered on 16:49; Start 05/08/17 at 16:45; Stop 05/09/17 at 10:48; Status DC Acetaminophen (Tylenol) 650 mg PRN Q4HRS PRN PO MILD PAIN / TEMP; Start at 07:15 Aspirin (Ecotrin) 81 mg DAILY PO Last administered on 05/09/17 09:16; Start at 09:00 Cyanocobalamin (Vitamin B-12) 500 mcg DAILY PO Last administered on 05/09/17 09:16; Start 05/09/17 at 09:00 Ferrous Sulfate 300 mg DAILYWBKFT PO Last administered on 05/09/17 09:12; Start 05/09/17 at 08:00 Lisinopril (Prinivil) 10 mg BID PO Last administered on 05/09/17 09:16; Start 05/09/17 at 09:00 Oxycodone/ Acetaminophen (Percocet 5/325) 1 tab PRN Q4HRS PRN PO moderate - severe pain; Start 05/09/17 at 07:15 Non-Formulary Medication 70 mg WEEKLY PO ; Start 05/09/17 at 09:00; Status UNV Calcium/Vitamin D (Oscal D 500mg/ 200uts) 1 tab BIDWMEALS PO Last administered on 05/09/17 09:15; Start 05/09/17 at 08:00 Vitamin D (Vitamin D3) 500 unit DAILY PO Last administered on 05/09/17 09:16; Start 05/09/17 at 09:00 Metoprolol Tartrate (Lopressor) 50 mg BID PO Last administered on 05/09/17 09: 14; Start 05/09/17 at 09:00 Active Scripts Active Aspirin 325 Mg Tablet 1 Tab PO BID after 1 month, go back to 81 mg pills Ferrous Sulfate 300 Mg/5 Ml Liquid 300 Mg PO DAILYWBKFT Oxycodone-Acetaminophen 5-325 (Oxycodone Hcl/Acetaminophen) 1 Each Tablet 1 Tab PO PRN Q4HRS PRN Tylenol (Acetaminophen) 325 Mg Tablet 650 Mg PO PRN Q4HRS PRN Reported Aspir 81 (Aspirin) 81 Mg Tablet. 1 Tab PO DAILY Alendronate Sodium 70 Mg Tablet 70 Mg PO WEEKLY Vitamin B-12 (Cyanocobalamin (Vitamin B-12)) 1,000 Mcg Tablet 500 Mcg PO DAILY Vitamin D (Cholecalciferol (Vitamin D3)) 1,000 Unit Capsule 400 Unit PO DAILY Caltrate 600 + D Tablet (Calcium Carbonate/Vitamin D3) 1 Each Tablet 1 Each PO BID Metoprolol Tartrate Unknown Strength Tablet 50 Mg PO BID Lisinopril 10 Mg Tablet 10 Mg PO BID Vitals/I & O Vital Sign - Last 24 Hours 05/08/17 05/08/17 05/08/17 05/08/17 15:02 19:00 20:20 23:00 Temp 98.3 97.9 98.5 98.3 97.9 98.5 Pulse 77 89 73 Resp 19 20 20 B/P (MAP) 118/57 (77) 123/60 (81) 134/58 (83) Pulse Ox 94 95 95 O2 Delivery Room Air Room Air Room Air Room Air 05/09/17 05/09/17 05/09/17 05/09/17 03:00 07:03 08:00 09:14 Temp 99.0 97.9 99.0 97.9 Pulse 71 98 98 Resp 17 B/P (MAP) 146/69 (94) 146/72 (96) 146/72 Pulse Ox 97 95 O2 Delivery Room Air Room Air Room Air 05/09/17 05/09/17 09:16 11:18 Temp 98.2 98.2 Pulse 98 84 Resp 17 B/P (MAP) 146/72 125/65 (85) Pulse Ox 96 O2 Delivery Room Air Intake and Output 05/08/17 05/08/17 05/09/17 15:00 23:00 07:00 Intake Total 400 ml 800 ml 1200 ml Balance 400 ml 800 ml 1200 ml YON GUAN III DO May 09, 2017 14:16
--- NOTE | 2017-05-09 18:49 | PDOC ---
PROGRESS NOTES Assessment Problems Medical Problems: (1) Failure to thrive Status: Acute (2) Generalized weakness Status: Acute 3. There was no evidence for stroke to my eye on the MRI. She does have extensive atrophy. The son was concern for the reason why she sometimes leans to the right. I feel this is a peripheral process related to her right hip surgery and right foot drop. She does have a resting tremor at times which I did not witness today. It is possible there may be early Parkinson's disease but there is not enough on her exam at this time to support this. Plan I will await the radiologic interpretation of the MRI. She needs to work on improving her diet and oral consumption. She will need to work with physical therapy for the strength. Subjective I have made a commitment today that I will eat more. So I can tell my family I' m just fine? Objective Vital Signs Date Time Temp Pulse Resp B/P (MAP) Pulse Ox O2 Delivery O2 Flow Rate FiO2 05/09/17 14:59 98.2 70 18 121/62 (81) 98 Room Air 98.2 Intake and Output 05/09/17 07:00 Intake Total 2400 ml Balance 2400 ml Intake Oral 1300 ml IV Total 1100 ml # Voids 14 PHYSICAL EXAM She was alert, awake and cooperative. Speech was slightly dysarthric but fluent and generally understandable. She was able to follow commands. The eyes were conjugate and face symmetric. There was no arm drift. Tone in the arms was normal. She did not have rigidity or tremor. The power was full and symmetric in the arms. She had weakness in the legs. Left hip and knee flexion was 4+/5. The strength on the right side was 4 minus/5 with hip flexion and knee flexion. She did not have any dorsiflexion of the right foot and plantar flexion was limited. Coordination with finger to nose was intact. Sensation was intact to light touch. Review of Relevant I have reviewed the following items scar (where applicable) has been applied. Labs Laboratory Tests Test 05/07/17 19:30 05/08/17 03:30 Nasal Screen MRSA (PCR) Negative (Negative) White Blood Count 6.3 x10^3/uL (4.0-11.0) Red Blood Count 3.47 x10^6/uL (3.50-5.40) Hemoglobin 10.6 g/dL (12.0-15.5) Hematocrit 32.3 % (36.0-47.0) Mean Corpuscular Volume 93 fL (79-100) Mean Corpuscular Hemoglobin 31 pg (25-35) Mean Corpuscular Hemoglobin Concent 33 g/dL (31-37) Red Cell Distribution Width 13.6 % (11.5-14.5) Platelet Count 262 x10^3/uL (140-400) Neutrophils (%) (Auto) 57 % (31-73) Lymphocytes (%) (Auto) 27 % (24-48) Monocytes (%) (Auto) 13 % (0-9) Eosinophils (%) (Auto) 2 % (0-3) Basophils (%) (Auto) 1 % (0-3) Neutrophils # (Auto) 3.6 x10^3uL (1.8-7.7) Lymphocytes # (Auto) 1.7 x10^3/uL (1.0-4.8) Monocytes # (Auto) 0.8 x10^3/uL (0.0-1.1) Eosinophils # (Auto) 0.1 x10^3/uL (0.0-0.7) Basophils # (Auto) 0.1 x10^3/uL (0.0-0.2) Sodium Level 143 mmol/L (136-145) Potassium Level 3.9 mmol/L (3.5-5.1) Chloride Level 109 mmol/L (98-107) Carbon Dioxide Level 30 mmol/L (21-32) Anion Gap 4 (6-14) Blood Urea Nitrogen 8 mg/dL (7-20) Creatinine 0.6 mg/dL (0.6-1.0) Estimated GFR (Cockcroft-Gault) 94.1 Glucose Level 87 mg/dL (70-99) Calcium Level 8.0 mg/dL (8.5-10.1) Microbiology 05/07/17 Urine Culture - Final, Complete 05/07/17 Urine Culture Result 1 (LANNY) - Final, Complete Medications Current Medications Ondansetron HCl (Zofran) 4 mg PRN Q8HRS PRN IV NAUSEA/VOMITING; Start 05/07/17 at 19:15; Stop 05/08/17 at 19:14; Status DC Morphine Sulfate 2 mg PRN Q2HR PRN IV PAIN; Start 05/07/17 at 19:15; Stop 05/08 at 19:14; Status DC Sodium Chloride 1,000 ml @ 75 mls/hr [id number] IV Last administered on 02:24; Start 05/08/17 at 12:30; Stop 05/09/17 at 18:37; Status DC Fluoxetine HCl (PROzac) 20 mg DAILY PO Last administered on 05/09/17 09:15; Start 05/08/17 at 14:00 Acetaminophen (Tylenol) 650 mg PRN Q6HRS PRN PO PAIN Last administered on 16:49; Start 05/08/17 at 16:45; Stop 05/09/17 at 10:48; Status DC Acetaminophen (Tylenol) 650 mg PRN Q4HRS PRN PO MILD PAIN / TEMP; Start at 07:15 Aspirin (Ecotrin) 81 mg DAILY PO Last administered on 05/09/17 09:16; Start at 09:00 Cyanocobalamin (Vitamin B-12) 500 mcg DAILY PO Last administered on 05/09/17 09:16; Start 05/09/17 at 09:00 Ferrous Sulfate 300 mg DAILYWBKFT PO Last administered on 05/09/17 09:12; Start 05/09/17 at 08:00 Lisinopril (Prinivil) 10 mg BID PO Last administered on 05/09/17 09:16; Start 05/09/17 at 09:00 Oxycodone/ Acetaminophen (Percocet 5/325) 1 tab PRN Q4HRS PRN PO moderate - severe pain; Start 05/09/17 at 07:15 Non-Formulary Medication 70 mg WEEKLY PO ; Start 05/09/17 at 09:00; Status UNV Calcium/Vitamin D (Oscal D 500mg/ 200uts) 1 tab BIDWMEALS PO Last administered on 05/09/17 17:22; Start 05/09/17 at 08:00 Vitamin D (Vitamin D3) 500 unit DAILY PO Last administered on 05/09/17 09:16; Start 05/09/17 at 09:00 Metoprolol Tartrate (Lopressor) 50 mg BID PO Last administered on 7/30/17at 09: 14; Start 05/09/17 at 09:00 Active Scripts Active Aspirin 325 Mg Tablet 1 Tab PO BID after 1 month, go back to 81 mg pills Ferrous Sulfate 300 Mg/5 Ml Liquid 300 Mg PO DAILYWBKFT Oxycodone-Acetaminophen 5-325 (Oxycodone Hcl/Acetaminophen) 1 Each Tablet 1 Tab PO PRN Q4HRS PRN Tylenol (Acetaminophen) 325 Mg Tablet 650 Mg PO PRN Q4HRS PRN Reported Aspir 81 (Aspirin) 81 Mg Tablet. 1 Tab PO DAILY Alendronate Sodium 70 Mg Tablet 70 Mg PO WEEKLY Vitamin B-12 (Cyanocobalamin (Vitamin B-12)) 1,000 Mcg Tablet 500 Mcg PO DAILY Vitamin D (Cholecalciferol (Vitamin D3)) 1,000 Unit Capsule 400 Unit PO DAILY Caltrate 600 + D Tablet (Calcium Carbonate/Vitamin D3) 1 Each Tablet 1 Each PO BID Metoprolol Tartrate Unknown Strength Tablet 50 Mg PO BID Lisinopril 10 Mg Tablet 10 Mg PO BID Vitals/I & O Vital Sign - Last 24 Hours 05/08/17 05/08/17 05/08/17 05/09/17 19:00 20:20 23:00 03:00 Temp 97.9 98.5 99.0 97.9 98.5 99.0 Pulse 89 73 71 Resp 20 20 17 B/P (MAP) 123/60 (81) 134/58 (83) 146/69 (94) Pulse Ox 95 95 97 O2 Delivery Room Air Room Air Room Air Room Air 05/09/17 05/09/17 05/09/17 05/09/17 07:03 08:00 09:14 09:16 Temp 97.9 97.9 Pulse 98 98 98 Resp 17 B/P (MAP) 146/72 (96) 146/72 146/72 Pulse Ox 95 O2 Delivery Room Air Room Air 05/09/17 05/09/17 11:18 14:59 Temp 98.2 98.2 98.2 98.2 Pulse 84 70 Resp 17 18 B/P (MAP) 125/65 (85) 121/62 (81) Pulse Ox 96 98 O2 Delivery Room Air Room Air Intake and Output 05/08/17 05/08/17 05/09/17 15:00 23:00 07:00 Intake Total 400 ml 800 ml 1200 ml Balance 400 ml 800 ml 1200 ml ZWIBELMAN,TAMAR S MD May 09, 2017 18:49
[2017-05-10 03:00] VITALS: BP 137/63
[2017-05-10 06:50] VITALS: BP 148/64
[2017-05-10] MEDS: CALCIUM CARB/VIT D3 500/200 TABLET. PO SCH (09:14)
[2017-05-10] MEDS: FLUoxetine HCL 20 MG CAPSULE PO SCH (09:15)
[2017-05-10] MEDS: ASPIRIN ENTERIC COATED 81 MG TABLET.DR. PO SCH (09:15)
[2017-05-10] MEDS: CHOLECALCIFEROL (VITAMIN D3) 1,000 UNIT TABLET PO SCH (09:16)
[2017-05-10] MEDS: LISINOPRIL 10 MG TABLET PO SCH (09:16)
[2017-05-10] MEDS: CYANOCOBALAMIN (VITAMIN B-12) 1,000 MCG TABLET. PO SCH (09:17)
[2017-05-10] MEDS: FERROUS SULFATE ORAL 300 MG/5 ML SOLUTION. PO SCH (09:17)
[2017-05-10] MEDS: METOPROLOL TART IMMED RELEASE 50 MG TABLET. PO SCH (09:17)
--- NOTE | 2017-05-10 10:30 | RAD ---
INDICATION: Generalized weakness. TECHNIQUE: Sagittal T1, axial T1, axial T2, axial FLAIR, axial T2 gradient, coronal T2, and diffusion imaging with ADC map was performed. Study was available for review by radiologist on May 10. Comparison MRI is from April 05, 2017. FINDINGS: There is prominence of the ventricles and sulci. There are areas of small vessel ischemic disease. There is no restricted diffusion to suggest an acute infarct. Cervical medullary junction is unremarkable. Pituitary and suprasellar region are unremarkable. Intracranial flow voids are preserved. There is minimal ethmoid mucosal thickening. IMPRESSION: 1. No evidence of an acute infarct. 2. Brain parenchymal volume loss and probable small vessel ischemic disease. 3. No change from one month earlier. Electronically signed by: Johann Costello MD (05/10/2017 10:26 AM) [id number]
[2017-05-10 10:56] VITALS: BP 129/61
[2017-05-10] MEDS ORDERED: CHOL10002 PO (12:05)
[2017-05-10] MEDS ORDERED: CYAN10005 PO (12:05)
[2017-05-10] MEDS ORDERED: BARIUM SULFATE 40% (APPLE) 148 GM PWD. PO ONE (13:15)
--- NOTE | 2017-05-10 14:15 | PDOC3 ---
Discharge Summary [facility] Date of Admission: May 07, 2017 Discharge Date: May 10, 2017 Admitting Diagnosis CC weakness/confusion with h/o mild dementia Osteoporosis HTN Problems: Final Diagnosis CONSULTS neuro Brief Hospital Course Ms. Barton is a 87 old F, COMES From SNF, for some possible confusion and weakness, leaning to one side as per son. BRain mri neg. pt feels better now, able to walk with a walker. dc back to snf, increase vitb12, vitd swallow video pending, on honey thicker diet x1 month now. dc time 35min General: Alert, Cooperative, Other (pt has dementia) Heart: Regular rate, No murmurs Lungs: Clear, Other Abdomen: Normal bowel sounds, Soft, No tenderness Extremities: No clubbing, No cyanosis Skin: No rashes, No significant lesion Problems: Disposition snf CONDITION AT DISCHARGE: Improved Diet honey thickened diet Scheduled Alendronate Sodium (Alendronate Sodium), 70 MG PO WEEKLY, (Reported) Aspirin (Aspir 81), 1 TAB PO DAILY, (Reported) Calcium Carbonate/Vitamin D3 (Caltrate 600 + D Tablet), 1 EACH PO BID, (Reported ) Cholecalciferol (Vitamin D3) (Vitamin D), 1,000 UNIT PO DAILY Cyanocobalamin (Vitamin B-12) (Vitamin B-12), 1,000 MCG PO DAILY Ferrous Sulfate (Ferrous Sulfate), 300 MG PO DAILYWBKFT Lisinopril (Lisinopril), 10 MG PO BID, (Reported) Metoprolol Tartrate (Metoprolol Tartrate), 50 MG PO BID, (Reported) Scheduled PRN Acetaminophen (Tylenol), 650 MG PO PRN Q4HRS PRN for MILD PAIN / TEMP Oxycodone Hcl/Acetaminophen (Oxycodone-Acetaminophen 5-325), 1 TAB PO PRN Q4HRS PRN for PAIN Discontinued Medications Aspirin (Aspirin), 1 TAB PO BID Cholecalciferol (Vitamin D3) (Vitamin D), 400 UNIT PO DAILY, (Reported) Cyanocobalamin (Vitamin B-12) (Vitamin B-12), 500 MCG PO DAILY, (Reported) Follow Up pcp in 2 weeks ELIAS LAL MD May 10, 2017 14:15
--- NOTE | 2017-05-10 14:21 | RAD ---
Video dysphasia study, 05/10/2017: History: Swallowing difficulty The swallowing mechanism was examined fluoroscopically in the lateral projection with the patient ingested a variety of food materials mixed with barium. 3.7 minutes of fluoroscopy time was utilized. One video loop was recorded by a member of the speech Department. The patient demonstrated good oral control of the barium materials. When ingesting the thin liquids there was deep laryngeal penetration without blanka aspiration. When the thicker materials were utilized the laryngeal penetration during swallowing abated. There was a moderate amount of vallecular and piriform sinus residue with ingesting the thickened materials. The residue seen to increase as the thickness of the materials increased. There was also a large amount of residue when ingesting the barium coated solid. IMPRESSION: 1. Deep laryngeal penetration of the thin liquids without blanka aspiration. 2. Large amount of vallecular and piriform sinus residue with the thicker materials.
[2017-05-10 14:48] VITALS: BP 122/60
--- NOTE | 2017-05-10 18:30 | PDOC ---
PROGRESS NOTES Assessment Assessment IMPRESSION: Generalized weakness. Fall. UTI HTN Tremors, right hand. Hip fracture recently. Hypothyroidism likely. Cognitive decline. No evidence of acute CVA this time. RECOMMENDATIONS/PLAN: Treat medical diseases. Lab: see orders. OT/PT Discussed with her sons and [id number] at bedside. PAST MEDICAL HISTORY: 1. Hypertension. 2. Osteoporosis. 3. Colectomy. 4. Right hip surgery after a fracture. 5. Hysterectomy. 6. Right foot drop. 7. Cognitive loss, likely dementia. 8. History of encephalopathy following surgery. ALLERGIES: No known allergies to drugs. MEDICATIONS PRIOR TO ADMISSION: Tylenol as needed, Fosamax 70 mg weekly, aspirin 81 mg, calcium carbonate and vitamin D3, vitamin B12, iron sulfate, lisinopril 10 mg twice per day, metoprolol 50 mg twice per day, and oxycodone/acetaminophen every 4 hours as needed. FAMILY HISTORY: Diabetes. SOCIAL HISTORY: She does not smoke tobacco, drink alcohol, or use recreational drugs. REVIEW OF SYSTEMS: She does not have any headache. She is not aware of any change in vision or hearing. She is not aware of any cognitive loss. She has not had trouble with swallowing. She does not appear to have shortness of breath, have chest or abdominal pain. She does not specifically complain of bone or joint pain. There has been no fever or rash. She has chronic constipation. No genitourinary complaint. She does not complain of easy bruising or bleeding. She denies any psychiatric concerns. She does occasionally have swelling in her feet and legs. MEDICATIONS: Refer to [facility] PHYSICAL EXAMINATION: General appearance in no acute distress. HEENT: Normocephalic and nontraumatic. Eyes, nose, ears, and throat are unremarkable. Hearing decrease. Neck is supple. No lymphadenopathy. No Crepitus. Cardiovascular: S1, S2, regular rate and rhythm. Pulmonary: Clear to auscultation bilaterally. Abdomen: Bowel sounds are positive. Abdomen is soft, nontender, and nondistended. Extremities: No rash, lesions, or edema. NEUROLOGICAL EXAMINATION: Awake. Oriented to place and person but not time. PERRL. EOMI. CN: no focal findings. Muscle tone: mildly increased. Muscle strength: 4 DTR: 2 UE, 1+ at knee. Plantar reflex: Neutral response bilaterally Gait: not examined in chair. Sensory exam: no abnormal findings. No cerebellar signs elicited. F-T-N test fine. Objective Objective Vital Signs Date Time Temp Pulse Resp B/P (MAP) Pulse Ox O2 Delivery O2 Flow Rate FiO2 05/10/17 14:48 97.7 71 18 122/60 (80) 96 Room Air 97.7 Intake and Output 05/10/17 07:00 Intake Total 820 ml Output Total 200 ml Balance 620 ml Intake Oral 820 ml Output Urine Total 200 ml # Voids 8 Vitals Signs Vitals VS - Last 72 Hours, by Label Date Time Temp Pulse Resp B/P (MAP) Pulse Ox O2 Delivery O2 Flow Rate FiO2 05/10/17 14:48 97.7 71 18 122/60 (80) 96 Room Air 97.7 05/10/17 10:56 97.9 65 18 129/61 (83) 95 Room Air 97.9 05/10/17 09:17 66 148/64 05/10/17 09:16 66 148/64 05/10/17 08:00 Room Air 05/10/17 06:50 97.8 66 20 148/64 (92) 94 Room Air 97.8 05/10/17 03:00 97.9 60 18 137/63 (87) 94 Room Air 97.9 05/09/17 23:00 98.5 61 18 148/62 (90) 97 Room Air 98.5 05/09/17 20:55 Room Air 05/09/17 20:19 70 110/59 (76) 05/09/17 20:19 70 121/62 05/09/17 20:18 70 121/62 05/09/17 19:00 98.1 74 18 103/54 (70) 98 Room Air 98.1 05/09/17 14:59 98.2 70 18 121/62 (81) 98 Room Air 98.2 05/09/17 11:18 98.2 84 17 125/65 (85) 96 Room Air 98.2 05/09/17 09:16 98 146/72 05/09/17 09:14 98 146/72 05/09/17 08:00 Room Air 05/09/17 07:03 97.9 98 17 146/72 (96) 95 Room Air 97.9 Laboratory Laboratory Laboratory Tests Test 05/10/17 12:05 Vitamin B12 Level 582 pg/mL (247-911) Thyroid Stimulating Hormone (TSH) 5.716 uIU/mL (0.358-3.74) Microbiology 05/07/17 Urine Culture - Final, Complete 05/07/17 Urine Culture Result 1 (LANNY) - Final, Complete Medication Medications Current Medications Barium Sulfate (Varibar Thin Liquid Apple) 148 gm 1X ONCE PO Last administered on 05/10/17t 14:11; Start 05/10/17 at 13:15; Stop 05/10/17 at 13:16 ; Status DC Cyanocobalamin (Vitamin B-12) 1,000 mcg DAILY PO ; Start 05/11/17 at 09:00; Stop 05/11/17 at 09:00; Status DC Vitamin D (Vitamin D3) 1,000 unit DAILY PO ; Start 05/11/17 at 09:00; Stop at 09:00; Status DC Comment Review of Relevant I have reviewed the following items scar (where applicable) has been applied. VALENTINO DANG MD May 10, 2017 18:30
[2017-05-11] MEDS ORDERED: CYANOCOBALAMIN (VITAMIN B-12) 1,000 MCG TABLET. PO SCH (09:00)
[2017-05-11] MEDS ORDERED: CHOLECALCIFEROL (VITAMIN D3) 1,000 UNIT TABLET PO SCH (09:00)
== END 2017-05-10 16:32 ==
LOC: ER 14:51 → 6 SOUTH 16:09
PROVIDERS: ADMIT Internal Medicine; ATTEND Internal Medicine
DX: R53.1 Weakness (principal); R62.7 Adult failure to thrive; F03.90 Unspecified dementia, unspecified severity, without behavioral disturbance, psychotic disturbance, mood disturbance, and anxiety; I10 Essential (primary) hypertension; M81.0 Age-related osteoporosis without current pathological fracture; R41.0 Disorientation, unspecified; M21.371 Foot drop, right foot; R13.10 Dysphagia, unspecified; K59.00 Constipation, unspecified; N39.0 Urinary tract infection, site not specified; Z79.899 Other long term (current) drug therapy; Z96.649 Presence of unspecified artificial hip joint; Z90.710 Acquired absence of both cervix and uterus; Z83.3 Family history of diabetes mellitus
CPT/HCPCS: 36415; 70450; 70551; 71010; 74230; 80048; 80076; 81001; 82306; 82607; 83605; 83690; 83880; 84436; 84443; 84484; 85027; 87086; 87641; 92526; 92610; 92611; 93005; 96360; 96361; 97110; 97116; 97162; 97166; 97530; 97535; 99285; G0378; G0379; G8978; G8979; G8980; G8987; G8988; G8996; G8997; J7030